=== PATIENT | female | born 1960 | race African-American/Black ===

== ENCOUNTER 2020-10-13 11:42 | Emergency (ER) | payer OTHER ==
[2020-10-13 12:07] VITALS: BP 157/71; PULSE 71; TEMP 97.9; BMI 39.5
[2020-10-13] MEDS ORDERED: ACETAMINOPHEN 500 MG TABLET (FP) PO ONE (13:30)
[2020-10-13] MEDS ORDERED: ACETAMINOPHEN 325 MG TABLET (FP) ONE (13:49)
[2020-10-13 14:18] LABS: BASO % 1.6 % (0-2.0); EOS % 3.9 % (0-4.5); HEMATOCRIT 29.4 % (32.4-45.2); LYMPH % 34.6 % (8-40); MCH 20.8 pg (25.7-33.7); MCHC 30.6 g/dl (32.0-36.0); MEAN PLT VOLUME 9.1 fl (7.5-11.1); MONO % 4.6 % (3.8-10.2); NEUT % 55.3 % (42.8-82.8); PLATELET COUNT 308 10^3/uL (134-434); RBC 4.32 M/mm3 (3.60-5.2); RDW 19.2 % (11.6-15.6); WHITE BLOOD COUNT 8.1 K/mm3 (4.0-10.0)
[2020-10-13 14:21] LABS: EPI CELLS 27 /uL (0-25.1); HYALINE CASTS 7 /uL (0-3.1); PH,URINE 5.5 (5.0-8.0); URINE APPEARANCE CLOUDY; URINE BACTERIA 1184 /uL (0-1359); URINE BILIRUBIN NEGATIVE (NEGATIVE); URINE COLOR YELLOW; URINE GLUCOSE (UA) NEGATIVE (NEGATIVE); URINE KETONE NEGATIVE (NEGATIVE); URINE LEUK ESTERASE 2+ (NEGATIVE); URINE NITRITE NEGATIVE (NEGATIVE); URINE PROTEIN NEGATIVE (NEGATIVE); URINE RBC 12 /uL (0-23.9); URINE WBC 177 /uL (0-25.8)
[2020-10-13 14:24] LABS: INR 1.03 (0.83-1.09); PROTHROMBIN TIME (PATIENT) 12.4 SEC (9.7-13.0)
[2020-10-13] MEDS ORDERED: CEFTRIAXONE 1,000 MG in DEXTROSE 5%-WATER - 50 ML IVPB ONE (14:25)
[2020-10-13 14:27] LABS: ACTIVATED PTT 25.1 SECONDS (25.2-36.5)
[2020-10-13 14:37] LABS: CHLORIDE 111 mmol/L (98-107); SODIUM 144 mmol/L (136-145)
[2020-10-13 14:39] LABS: ANION GAP 8 MMOL/L (8-16); BLOOD UREA NITROGEN 11.8 mg/dL (7-18); CALCIUM 8.7 mg/dL (8.5-10.1); CO2 25 mmol/L (21-32); GLUCOSE,RANDOM 84 mg/dL (74-106)
[2020-10-13 14:40] LABS: ANISOCYTOSIS 3+; MACROCYTOSIS 0; PLATELET ESTIMATE NORMAL
[2020-10-13 14:42] LABS: CREATININE 0.7 mg/dL (0.55-1.3); SGOT/AST 27 U/L (15-37); SGPT/ALT 30 U/L (13-61)
[2020-10-13 14:44] LABS: BILIRUBIN,TOTAL 0.4 mg/dL (0.2-1); TOT PROT 8.4 g/dl (6.4-8.2)
[2020-10-13 14:45] LABS: ALK PHOS 177 U/L (45-117)
[2020-10-13] MEDS ORDERED: CEFTRIAXONE 1 GM/50 ML BAG ONE (15:22)
== END 2020-10-13 18:18 | disposition home or self-care (01) ==
LOC: JER 11:42
DX: N39.0 Urinary tract infection, site not specified (principal)
CPT/HCPCS: 36415; 71275-TC; 80053; 81003; 82550; 82553; 84484; 85025; 85610; 85730; 87086; 93005; 93010; 93971-TC; 99285-25; Q9967